=== PATIENT | female | born 1935 | race Caucasian/White ===

== ENCOUNTER 2021-12-30 14:33 | Inpatient (IN) | payer MEDICARE ==
[2021-12-30] MEDS ORDERED: HYDROmorphone 0.5 MG/0.5 ML SYRINGE IVP STA ×2 (15:07→15:47)
[2021-12-30] MEDS ORDERED: KETOROLAC 15 MG/ML 1 ML VIAL IVP STA (15:07)
--- NOTE | 2021-12-30 15:07 | ED ---
General Adult HPI - General Chief complaint: Fall Stated complaint: fall-difficulty breathing Time Seen by Provider: 12/30/21 14:40 Source: patient, RN notes reviewed, old records reviewed Mode of arrival: ambulatory Limitations: no limitations - History of Present Illness Initial comments: This is a 86-year-old female presents emergency room stating that one week ago she fell and hit the door jam on the right side. Patient states every day it gets a little worse to the point now she is in significant pain. Patient states the pain is in the right upper quadrant and anterior and posterior ribs. Patient denies shortness of breath. Patient states it hurts take a deep breath on. Patient denies any palpitations. Patient denies any fever chills or cough per patient denies abdominal pain patient denies nausea vomiting diarrhea. - Related Data Home Medications Medication Instructions Recorded Confirmed Acetaminophen [Tylenol 8 Hour] 650 mg PO Q8H PRN 12/30/21 12/30/21 Atorvastatin [Lipitor] 20 mg PO DAILY 12/30/21 12/30/21 Gabapentin 300 mg PO HS 12/30/21 12/30/21 HYDROcodone/APAP 5-325MG [[place] 1 tab PO ONCE PRN 12/30/21 12/30/21 5-325] Losartan Potassium 100 mg PO DAILY 12/30/21 12/30/21 Magnesium 200 mg PO DAILY 12/30/21 12/30/21 Meloxicam [Mobic] 15 mg PO DAILY 12/30/21 12/30/21 Omeprazole 20 mg PO DAILY 12/30/21 12/30/21 hydroCHLOROthiazide [Hydrodiuril] 25 mg PO DAILY 12/30/21 12/30/21 traMADol HCL 50 mg PO ONCE PRN 12/30/21 12/30/21 Previous Rx's Medication Instructions Recorded Cyclobenzaprine [Flexeril] 5 mg PO TID #9 tab 12/30/21 Allergies Allergy/AdvReac Type Severity Reaction Status Date / Time No Known Allergies Allergy Verified 12/30/21 16:37 Review of Systems ROS Statement: Those systems with pertinent positive or pertinent negative responses have been documented in the HPI. ROS Other: All systems not noted in ROS Statement are negative. Past Medical History Past Medical History: Hypertension History of Any Multi-Drug Resistant Organisms: None Reported Past Surgical History: No Surgical Hx Reported Past Psychological History: No Psychological Hx Reported Smoking Status: Never smoker Past Alcohol Use History: None Reported Past Drug Use History: None Reported General Exam - General Exam Comments Initial Comments: GENERAL: Patient is well-developed and well-nourished. Patient is nontoxic and well- hydrated and is in mild distress. ENT: Neck is soft and supple. No significant lymphadenopathy is noted. Oropharynx is clear. Moist mucous membranes. Neck has full range of motion without eliciting any pain. EYES: The sclera were anicteric and conjunctiva were pink and moist. Extraocular movements were intact and pupils were equal round and reactive to light. Eyelids were unremarkable. PULMONARY: Unlabored respirations. Good breath sounds bilaterally. No audible rales rhonchi or wheezing was noted. CARDIOVASCULAR: There is a regular rate and rhythm without any murmurs gallops or rubs. Patient has some anterior right rib pain as well as some posterior right rib pain ABDOMEN: Right upper quadrant tenderness SKIN: Skin is clear with no lesions or rashes and otherwise unremarkable. NEUROLOGIC: Patient is alert and oriented x3. Cranial nerves II through XII are grossly intact. Motor and sensory are also intact. Normal speech, volume and content. Symmetrical smile. MUSCULOSKELETAL: Normal extremities with adequate strength and full range of motion. LYMPHATICS: No significant lymphadenopathy is noted PSYCHIATRIC: Normal psychiatric evaluation. Limitations: no limitations Course Vital Signs 12/30/21 12/30/21 12/30/21 14:37 17:30 18:07 Temperature 98.2 F Pulse Rate 107 H 89 95 Respiratory 22 18 18 Rate Blood Pressure 194/97 181/82 156/82 O2 Sat by Pulse 96 93 L 96 Oximetry Medical Decision Making - Medical Decision Making Patient still complains of right-sided back and lateral chest pain. Patient states it seems to come and go with position. Patient's CT of the abdomen pelvis show no acute normalities showed 2 old thoracic compression fractures. Patient seemed to be still and reasonable mono pain so I recommended a 23 observation patient actually refused and stated tomorrow significant she has to be home. Her aware of this they were in the room I discussed this with her. EKG shows sinus tachycardia at 102 bpm GA interval 170 QRS is 94 QT interval 349 QTC is 408. Patient's EKG shows no ST segment elevation or depression. After the patient was here another hour prior to being discharged the pain came back and she was unable to go home so I spoke with Dr. Snider agreed to be on consult I spoke with Dr. Rojo he agreed to admit the patient I wrote admit orders consult Dr. Arce - Lab Data Result diagrams: 12/30/21 Unknown 12/30/21 Unknown Disposition Clinical Impression: Fall, Chest wall pain, Thoracic back pain, Hyponatremia Disposition: ADMITTED IP TO THIS [facility] Time of Disposition: 17:12
[2021-12-30 15:27] LABS: Albumin 4.6 g/dL (3.5-5.0); Calcium 9.3 mg/dL (8.4-10.2); Total Bilirubin 1.1 mg/dL (0.2-1.3); Total Protein 7.9 g/dL (6.3-8.2)
[2021-12-30 15:31] LABS: Potassium 4.7 mmol/L (3.5-5.1)
[2021-12-30 15:37] LABS: Basophils # (A) 0.1 k/uL (0-0.2); Basophils % (A) 1 %; Eosinophils # (A) 0.1 k/uL (0-0.7); Eosinophils % (A) 2 %; HCT 41.1 % (34.0-46.0); Lymphocytes # (A) 1.1 k/uL (1.0-4.8); Lymphocytes % (A) 19 %; MCH 30.1 pg (25.0-35.0); MCHC 34.1 g/dL (31.0-37.0); MCV 88.1 fL (80.0-100.0); Mean Platelet Volume 6.7; Monocytes # (A) 0.4 k/uL (0-1.0); Monocytes % (A) 8 %; Neutrophils # (A) 3.7 k/uL (1.3-7.7); Neutrophils % (A) 68 %; Platelet Count 358 k/uL (150-450); RBC 4.66 m/uL (3.80-5.40); RDW 12.3 % (11.5-15.5); WBC 5.5 k/uL (3.8-10.6)
[2021-12-30] MEDS ORDERED: SODIUM CHLORIDE 0.9% 500 ML 500 ML IV ONE (16:16)
--- NOTE | 2021-12-30 16:44 | CT ---
EXAMINATION TYPE: CT ChestAbdPelvis w con DATE OF EXAM: 12/30/2021 COMPARISON: None HISTORY: right side rib pain, recent fall CT DLP: 1391.6 mGycm Automated exposure control for dose reduction was used. CONTRAST: Performed with IV Contrast, patient injected with 80 mL of Isovue 300. Images obtained from the thoracic inlet to the floor of the pelvis with IV contrast. There is some mild subsegmental atelectasis at the right lung base. There is elevated right diaphragm . Heart size is normal. No pericardial effusion. There is hiatal hernia. There is no mediastinal adenopathy. Thoracic aorta shows mild atheromatous changes. There are no hiral r masses. There is no thoracic aortic aneurysm or dissection. Liver and spleen are intact. The bile ducts are not dilated. Gallbladder is intact. There is no pancr eatic mass. Stomach is intact. There is no adrenal mass. Kidneys show satisfactory contrast opacification. There is no hydronephrosi s. Delayed images show normal renal excretion. There is no retroperitoneal adenopathy. Abdominal aort a is atheromatous. There is broad-based umbilical hernia that contains fat. There is T12 compression fracture with 75% loss of height and anterior wedging. Fractures probably ol d. There is T7 wedging 35%. This appears old. The bony pelvis is intact. The hip joints are intact. T he shoulder joints appear intact. No rib fracture seen. There is no mesenteric edema. No ascites or free air. No bowel obstruction. IMPRESSION: Thoracic compression fractures are probably old. Atherosclerotic vascular disease. No definite eviden ce for acute traumatic injury in the abdomen pelvis. There is some atelectasis at the right lung base with elevated right diaphragm that could relate to diaphragm paralysis.
[2021-12-30] MEDS ORDERED: ONDANSETRON 4 MG/2 ML VIAL IVP STA (16:50)
[2021-12-30] MEDS ORDERED: ONDANSETRON 4 MG ODT STARTER PACK 2 TAB BTL PO STA (17:13)
[2021-12-30] MEDS ORDERED: hydrALAZINE HCL 20 MG/ML 1 ML VIAL IVP STA (17:41)
[2021-12-30] MEDS ORDERED: CYCLOBENZAPRINE 10MG STARTER 3 TAB BTL PO STA (18:14)
[2021-12-30] MEDS ORDERED: DIAZEPAM 5 MG/ML 2 ML INJ IVP STA (18:36)
[2021-12-30] MEDS ORDERED: SODIUM CHLORIDE 0.9% 1,000 ML IV ONE (19:12)
[2021-12-30] MEDS ORDERED: HYDROmorphone 0.5 MG/0.5 ML SYRINGE IVP PRN (19:14)
[2021-12-30] MEDS ORDERED: HYDROcodone/APAP 5-325MG 1 EACH TAB PO PRN (20:40)
[2021-12-30] MEDS ORDERED: ACETAMINOPHEN TAB 325 MG TAB PO PRN (20:40)
[2021-12-30] MEDS ORDERED: GABAPENTIN 300 MG CAP PO SCH (21:00)
[2021-12-30] MEDS: HEPARIN SODIUM,PORCINE/PF 5,000 UNIT/0.5 ML SYRINGE SQ SCH (21:02)
[2021-12-30] MEDS ORDERED: ONDANSETRON 4 MG/2 ML VIAL IVP PRN (21:56)
[2021-12-30] MEDS: HYDROmorphone 1 MG/ML 1 ML SYRINGE IVP PRN (22:42)
[2021-12-31] MEDS: HYDROmorphone 1 MG/ML 1 ML SYRINGE IVP PRN (03:45)
[2021-12-31] MEDS: hydrALAZINE HCL 25 MG TAB PO PRN ×2 (04:29→23:31)
[2021-12-31] MEDS: ATORVASTATIN 20 MG TAB PO SCH (08:22)
[2021-12-31] MEDS: LOSARTAN 50 MG TAB PO SCH (08:22)
[2021-12-31] MEDS: FAMOTIDINE 20 MG TAB PO SCH (08:22)
[2021-12-31] MEDS: HEPARIN SODIUM,PORCINE/PF 5,000 UNIT/0.5 ML SYRINGE SQ SCH ×2 (08:22→20:42)
[2021-12-31] MEDS: MELOXICAM 7.5 MG TAB PO SCH (08:23)
[2021-12-31] MEDS: MAGNESIUM OXIDE 400 MG TAB PO SCH (08:23)
[2021-12-31] MEDS: PANTOPRAZOLE 40 MG TABLET PO SCH (08:24)
--- NOTE | 2021-12-31 08:57 | P.CNOR ---
History of Present Illness - [facility] Consult date: 12/31/21 Requesting physician: Krishan Rojo Consult reason: other (Back Pain post trauma) History of present illness: Patient is an 86 y/o forward female presents to the emergency department at [facility] yesterday status post fall at home on last 12/26/2021. Patient says she was in her basement when she fell and hit the door jam. Patient says she did land on her right side and she began to have some right- sided rib pain. Patient says this morning at bedside that the pain is under much better control than it was yesterday. Patient says the pain is 4/10 currently. Patient says the pain comes from the right front portion of her chest and radiates to her back on the right side in the thoracic region. Patient says the pain is exacerbated when she takes a deep breath. Patient says pain alleviated when she doesn't move positions. Patient denies any previous orthopedic surgical history. Patient says she has had several steroid injections into her lower back in the past. Patient thinks there is about 5 different times and she has had injections in the past. Patient denies shortness breath, chest pain, nausea, vomiting, change in vision, some all/bladder control Past Medical History Past Medical History: Hypertension History of Any Multi-Drug Resistant Organisms: None Reported Past Surgical History: Hysterectomy Past Anesthesia/Blood Transfusion Reactions: No Reported Reaction Past Psychological History: No Psychological Hx Reported Smoking Status: Never smoker Past Alcohol Use History: None Reported Past Drug Use History: None Reported Medications and Allergies Home Medications Medication Instructions Recorded Confirmed Type Acetaminophen [Tylenol 8 Hour] 650 mg PO Q8H PRN 12/30/21 12/30/21 History Atorvastatin [Lipitor] 20 mg PO DAILY 12/30/21 12/30/21 History Cyclobenzaprine [Flexeril] 5 mg PO TID #9 tab 12/30/21 Rx Gabapentin 300 mg PO HS 12/30/21 12/30/21 History HYDROcodone/APAP 5-325MG [[place] 1 tab PO ONCE PRN 12/30/21 12/30/21 History 5-325] Losartan Potassium 100 mg PO DAILY 12/30/21 12/30/21 History Magnesium 200 mg PO DAILY 12/30/21 12/30/21 History Meloxicam [Mobic] 15 mg PO DAILY 12/30/21 12/30/21 History Omeprazole 20 mg PO DAILY 12/30/21 12/30/21 History hydroCHLOROthiazide [Hydrodiuril] 25 mg PO DAILY 12/30/21 12/30/21 History traMADol HCL 50 mg PO ONCE PRN 12/30/21 12/30/21 History Allergies Allergy/AdvReac Type Severity Reaction Status Date / Time No Known Allergies Allergy Verified 12/30/21 16:37 Physical Examination Upon inspection there is no evidence of open fractures, erythema, nodules. Mild tenderness to palpation along the mid thoracic spine in the right paravertebral region along the thoracic spine. There is some mild tenderness patient along the ribs on the right side. Sensations equal, symmetric, bilaterally intact in the upper and lower extremity is. Patient has good range of motion in bilateral lower and upper extremities. 5/5 in all major motor groups in the bilateral upper and lower extremities. Patient does have good range of motion in the neck without pain during flexion/extension. Negative Homans bilaterally. Neurovascular status intact bilaterally in the upper extremities. Radial pulses 2+ bilaterally Refill is under 3 seconds in digits of upper extremities Results - Labs Labs: Abnormal Lab Results - Last 24 Hours (Table) 12/30/21 Range/Units Unknown Sodium 128 L (137-145) mmol/L Chloride 94 L (98-107) mmol/L BUN 19 H (7-17) mg/dL Glucose 136 H (74-99) mg/dL AST 38 H (14-36) U/L H & H 12/30/21 Range/Units Unknown Hgb 14.0 (11.4-16.0) gm/dL Hct 41.1 (34.0-46.0) % Result Diagrams: 12/30/21 Unknown 12/30/21 Unknown Assessment and Plan Assessment: 1. Right-sided rib pain; T7, T12 compression fractures, chronic Plan: 1. Right-sided rib pain; T7, T12 compression fractures, chronic - I did discuss the findings of the CT of abdomen and pelvis with the patient at bedside. There appears to be a couple different compression fractures that appear to be chronic in nature. No evidence of rib fractures at this time. Patient was stable at bedside with pain under good control. From an orthopedic standpoint patient does not need any emergent/urgent orthopedic surgery. Appreciate consult. We will continue to follow patient while in hospital. 2. Appreciate medical management 3. Pain management - Tylenol; [place]; gabapentin 4. DVT prophylaxis - heparin 5. GI prophylaxis - Pepcid; Mag-Ox 6. PT/OT - weightbearing as tolerated with walker as needed Time with Patient: Less than 30
[2021-12-31] MEDS ORDERED: hydroCHLOROthiazide 25 MG TAB PO SCH (09:00)
--- NOTE | 2021-12-31 09:39 | P.GSCN ---
History of Present Illness Consult date: 12/31/21 Reason for Consult: Status post fall History of present illness: Patient came to the emergency department yesterday complaining of right-sided chest pain and back pain. Now states its been mostly in the mid to upper back. Patient apparently had too much discomfort to go home from the emergency department yesterday. Apparently the fall was 12 days ago. She said she fell into a door jam. Patient is oriented been seen by orthopedic surgery. Patient has evidence of old or spinal compression fractures but nothing appears acute at this time. She underwent chest abdomen and pelvis CAT scan showing no definite explanation for her symptoms. She says she feels much better today than she did yesterday. Denies abdominal pain. No shortness of breath. Review of Systems The patient denies any acute changes in vision or hearing, no dysphagia or odynophagia, no shortness of breath, no dysuria or hematuria, no headache, no runny nose, no rectal bleeding or melena, no unexplained weight loss Past Medical History Past Medical History: Hypertension History of Any Multi-Drug Resistant Organisms: None Reported Past Surgical History: Hysterectomy Past Anesthesia/Blood Transfusion Reactions: No Reported Reaction Past Psychological History: No Psychological Hx Reported Smoking Status: Never smoker Past Alcohol Use History: None Reported Past Drug Use History: None Reported Medications and Allergies Home Medications Medication Instructions Recorded Confirmed Type Acetaminophen [Tylenol 8 Hour] 650 mg PO Q8H PRN 12/30/21 12/30/21 History Atorvastatin [Lipitor] 20 mg PO DAILY 12/30/21 12/30/21 History Cyclobenzaprine [Flexeril] 5 mg PO TID #9 tab 12/30/21 Rx Gabapentin 300 mg PO HS 12/30/21 12/30/21 History HYDROcodone/APAP 5-325MG [[place] 1 tab PO ONCE PRN 12/30/21 12/30/21 History 5-325] Losartan Potassium 100 mg PO DAILY 12/30/21 12/30/21 History Magnesium 200 mg PO DAILY 12/30/21 12/30/21 History Meloxicam [Mobic] 15 mg PO DAILY 12/30/21 12/30/21 History Omeprazole 20 mg PO DAILY 12/30/21 12/30/21 History hydroCHLOROthiazide [Hydrodiuril] 25 mg PO DAILY 12/30/21 12/30/21 History traMADol HCL 50 mg PO ONCE PRN 12/30/21 12/30/21 History Allergies Allergy/AdvReac Type Severity Reaction Status Date / Time No Known Allergies Allergy Verified 12/30/21 16:37 Surgical - Exam Vital Signs Temp Pulse Resp BP Pulse Ox 98.2 F 107 H 22 194/97 96 12/30/21 14:37 12/30/21 14:37 12/30/21 14:37 12/30/21 14:37 12/30/21 14:37 Physical exam: General: Well-developed, well-nourished HEENT: Normocephalic, sclerae nonicteric Chest: Nontender, equal breath sounds Abdomen: Nontender, nondistended Extremities: No edema, mild lower thoracic vertebral tenderness, no crepitus Neuro: Alert and oriented Results - Labs 12/30/21 Unknown 12/30/21 Unknown Abnormal Lab Results - Last 24 Hours (Table) 12/30/21 Range/Units Unknown Sodium 128 L (137-145) mmol/L Chloride 94 L (98-107) mmol/L BUN 19 H (7-17) mg/dL Glucose 136 H (74-99) mg/dL AST 38 H (14-36) U/L Diabetes panel 12/30/21 Range/Units Unknown Sodium 128 L (137-145) mmol/L Potassium 4.7 (3.5-5.1) mmol/L Chloride 94 L (98-107) mmol/L Carbon Dioxide 23 (22-30) mmol/L BUN 19 H (7-17) mg/dL Creatinine 0.85 (0.52-1.04) mg/dL Glucose 136 H (74-99) mg/dL Calcium 9.3 (8.4-10.2) mg/dL AST 38 H (14-36) U/L ALT 16 (4-34) U/L Alkaline Phosphatase 71 (38-126) U/L Total Protein 7.9 (6.3-8.2) g/dL Albumin 4.6 (3.5-5.0) g/dL Calcium panel 12/30/21 Range/Units Unknown Calcium 9.3 (8.4-10.2) mg/dL Albumin 4.6 (3.5-5.0) g/dL Pituitary panel 12/30/21 Range/Units Unknown Sodium 128 L (137-145) mmol/L Potassium 4.7 (3.5-5.1) mmol/L Chloride 94 L (98-107) mmol/L Carbon Dioxide 23 (22-30) mmol/L BUN 19 H (7-17) mg/dL Creatinine 0.85 (0.52-1.04) mg/dL Glucose 136 H (74-99) mg/dL Calcium 9.3 (8.4-10.2) mg/dL Adrenal panel 12/30/21 Range/Units Unknown Sodium 128 L (137-145) mmol/L Potassium 4.7 (3.5-5.1) mmol/L Chloride 94 L (98-107) mmol/L Carbon Dioxide 23 (22-30) mmol/L BUN 19 H (7-17) mg/dL Creatinine 0.85 (0.52-1.04) mg/dL Glucose 136 H (74-99) mg/dL Calcium 9.3 (8.4-10.2) mg/dL Total Bilirubin 1.1 (0.2-1.3) mg/dL AST 38 H (14-36) U/L ALT 16 (4-34) U/L Alkaline Phosphatase 71 (38-126) U/L Total Protein 7.9 (6.3-8.2) g/dL Albumin 4.6 (3.5-5.0) g/dL Assessment and Plan (1) Fall Narrative/Plan: 86-year-old female with pain after recent fall 12 days ago. Appreciate orthopedic evaluation. It appears there are no plans for any further imaging per orthopedics. Increase activity today. Continue analgesics. Current Visit: Yes Status: Acute Code(s): W19.XXXA - UNSPECIFIED FALL, INITIAL ENCOUNTER SNOMED Code(s): 6688788
[2021-12-31] MEDS: DEXAMETHASONE SOD PHOSPHATE 4 MG/ML 1 ML VIAL IVP SCH ×2 (11:20→20:42)
--- NOTE | 2021-12-31 11:33 | P.HPIM ---
History of Present Illness H&P Date: 12/31/21 HISTORY OF PRESENT ILLNESS 86-year-old female one of Dr. Romain Rosenberg's patient with past medical history of hypertension, hyperlipidemia, chronic lower back pain with history of neuropathy and GERD who apparently seen Dr. Jin physiatry in his office for epidural injection every so often has been on gabapentin for chronic lower back pain along with hydrocodone and muscle relaxer. Patient has fallen at home and her kitchen 12 days ago without any syncope doesn't remember it happen exactly which she believes she tripped was able to get up and walk and did well initially then lost few days developed to have intractable pain and discomfort not been able to walk ambulate or lay down down flat not able to use the bathroom not able to tolerate her food or fluid. Patient ended up coming to the emergency department at [facility] where was seen and evaluated surprisingly her exiting CAT scan showed to compression vertebrae in the thoracic spine with no other major finding. Patient was giving some Dilaudid and initially wants to go home but she started throwing up and had coffee-ground emesis as well after been in the ER for few hours not able to con trol her symptoms and with the nausea vomiting and coffee-ground emesis patient was admitted to the hospital REVIEW OF SYSTEMS Constitutional: No fever, no chills, no night sweats. No weight change. No weakness, fatigue or lethargy. No daytime sleepiness. EENT: No headache. No blurred vision or double vision, no loss of vision. No loss of Hearing, no ringing in the ears, no dizziness. No nasal drainage or congestion. No epistaxis. No sore throat. Lungs: No shortness of breath, cough, no sputum production. No wheezing. Cardiovascular: No chest pain, no lower extremity edema. No palpitations. No paroxysmal nocturnal dyspnea. No orthopnea. No lightheadedness or dizziness. No syncopal episodes. Abdominal: Abdominal pain nausea had vomiting 2, have coffee-ground emesis with no further active bleed had no constipation or diarrhea last bowel movement was 2 days ago. Genitourinary: No dysuria, increased frequency, urgency. No urinary retention. Musculoskeletal: No myalgias. Severe muscle pain in the thoracic and lumbar spine area. Integumentary: No wounds, no lesions. No rash or pruritus. No unusual bruising. No change in hair or nails. Neurologic: No aphasia. No facial droop. No change in mentation. No head injury. No headache. No paralysis. No paresthesia. Psychiatric: No depression. No anxiety. No mood swings. Endocrine: No abnormal blood sugars. No weight change. No excessive sweating or thirst. No cold intolerance. SOCIAL HISTORY He quit smoking 50 years ago used to smoke half-pack a day for 20 years, no alcohol abuse, she is and lives with her . FAMILY HISTORY She has 4 children are all living and well. Patient had 7 siblings 3 of them past 2 from CAD and recurrent from pancreatic cancer, her mother dying at 79 from CHF father age 96 from old age. PHYSICAL EXAMINATION Gen: This is an elderly mildly overweight no acute respiratory distress. HEENT: Head is atraumatic, normocephalic. Pupils equal, round. Sclerae is anicteric. NECK: Supple. No JVD. No lymphadenopathy. No thyromegaly. LUNGS: Clear to auscultation. No wheezes or rhonchi. No intercostal retractions. HEART: Regular rate and rhythm. No murmur. ABDOMEN: Soft with mild discomfort in the epigastric area positive bowel sounds rebound or rigidity. EXTREMITIES: No pedal edema. No calf tenderness. NEUROLOGICAL: Patient is awake, alert and oriented x3. Cranial nerves 2 through 12 are grossly intact. Back: Slight discomfort and irritation in the mid thoracic spine and upper lumbar spine area no rash slight tenderness over the spinal area. ASSESSMENT AND PLAN 1. Intractable back pain post fall: With to compression vertebrae found on a CAT scan, patient will be seen orthopedic continue Decadron along with pain andree zuluaga for now decide with her orthopedic able to do any kyphoplasty or if pain still not under control patient might need to see anesthesia for epidural injection. The meanwhile continue hydromorphone overnight switch patient to hydrocodone by tomorrow we'll continue muscle relaxer and steroids. 2 coffee-ground emesis: With no active GI bleed at this point CBC will be repeated again continue PPI. 3 chronic lower back pain: Has been on hydrocodone code on along with gabapentin. 4 hypertension: Continue patient on losartan 100 mg a day along with Dyazide. 5 hyperlipidemia: Continue atorvastatin 20 mg a day. 6 Severe GERD: Has been on omeprazole 20 mg a day. 7 chronic neuropathy: Has been on gabapentin 300 mg daily at bedtime Will increase the dose to twice a day at this point. 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 9 hyperglycemia: Most likely borderline diabetes hemoglobin A1c be requested a Chin will be on diet control continue Accu-Chek sliding scales coverage. 10 GI prophylaxis: Continue PI. 11 DVT prophylaxis: We'll continue subcu heparin if patient does not have any GI bleed. CODE STATUS: Full code. Patient will be admitted to the hospital for a minimum of 2 night stay. Past Medical History Past Medical History: Hypertension History of Any Multi-Drug Resistant Organisms: None Reported Past Surgical History: Hysterectomy Past Anesthesia/Blood Transfusion Reactions: No Reported Reaction Past Psychological History: No Psychological Hx Reported Smoking Status: Never smoker Past Alcohol Use History: None Reported Past Drug Use History: None Reported Medications and Allergies Home Medications Medication Instructions Recorded Confirmed Type Acetaminophen [Tylenol 8 Hour] 650 mg PO Q8H PRN 12/30/21 12/30/21 History Atorvastatin [Lipitor] 20 mg PO DAILY 12/30/21 12/30/21 History Cyclobenzaprine [Flexeril] 5 mg PO TID #9 tab 12/30/21 Rx Gabapentin 300 mg PO HS 12/30/21 12/30/21 History HYDROcodone/APAP 5-325MG [[place] 1 tab PO ONCE PRN 12/30/21 12/30/21 History 5-325] Losartan Potassium 100 mg PO DAILY 12/30/21 12/30/21 History Magnesium 200 mg PO DAILY 12/30/21 12/30/21 History Meloxicam [Mobic] 15 mg PO DAILY 12/30/21 12/30/21 History Omeprazole 20 mg PO DAILY 12/30/21 12/30/21 History hydroCHLOROthiazide [Hydrodiuril] 25 mg PO DAILY 12/30/21 12/30/21 History traMADol HCL 50 mg PO ONCE PRN 12/30/21 12/30/21 History Allergies Allergy/AdvReac Type Severity Reaction Status Date / Time No Known Allergies Allergy Verified 12/30/21 16:37 Physical Exam Vitals: Vital Signs Temp Pulse Pulse Pulse Resp BP BP 12/31/21 08:00 90 156/99 12/31/21 06:02 99 149/82 12/31/21 04:20 100 163/89 12/31/21 02:00 97.8 F 102 H 18 169/77 12/30/21 22:00 101 H 149/92 12/30/21 21:00 103 H 18 12/30/21 20:26 89 18 147/84 12/30/21 20:00 98.1 F 103 H 18 182/97 12/30/21 18:07 95 18 156/82 12/30/21 17:30 89 18 181/82 12/30/21 14:37 98.2 F 107 H 22 194/97 Pulse Ox 12/31/21 08:00 12/31/21 06:02 12/31/21 04:20 12/31/21 02:00 92 L 12/30/21 22:00 12/30/21 21:00 12/30/21 20:26 95 12/30/21 20:00 95 12/30/21 18:07 96 12/30/21 17:30 93 L 12/30/21 14:37 96 Intake and Output 12/30/21 12/31/21 12/31/21 22:59 06:59 14:59 Intake Total 675 Balance 675 Intake: Intake, IV Titration 675 Amount Sodium Chloride 0.9% 1, 675 000 ml @ 75 mls/hr IV . [id number] ONE Rx#:[id number] Other: Voiding Method Toilet Weight 73.936 kg Results CBC & Chem 7: 12/30/21 Unknown 12/30/21 Unknown Labs: Abnormal Lab Results - Last 24 Hours (Table) 12/30/21 Range/Units Unknown Sodium 128 L (137-145) mmol/L Chloride 94 L (98-107) mmol/L BUN 19 H (7-17) mg/dL Glucose 136 H (74-99) mg/dL AST 38 H (14-36) U/L Thrombosis Risk Factor Assmnt - Choose All That Apply Any of the Below Risk Factors Present?: Yes Each Factor Represents 1 point: Obesity (BMI >25) Other Risk Factors: Yes Each Risk Factor Represents 3 Points: Age 75 years or older Thrombosis Risk Factor Assessment Total Risk Factor Score: 4 Thrombosis Risk Factor Assessment Level: Moderate Risk
[2021-12-31 11:52] LABS: HCT 40.5 % (34.0-46.0); MCH 29.3 pg (25.0-35.0); MCV 91.8 fL (80.0-100.0); Mean Platelet Volume 6.6; Platelet Count 336 k/uL (150-450); RBC 4.42 m/uL (3.80-5.40); RDW 11.9 % (11.5-15.5); WBC 8.6 k/uL (3.8-10.6)
[2021-12-31] MEDS: HYDROcodone/APAP 10-325MG 1 EACH TAB PO PRN ×2 (11:56→20:41)
[2021-12-31 12:07] LABS: ALT 15 U/L (4-34); AST 32 U/L (14-36); African American GFR (CKD) 70 (>60 ml/min/1.73 sqM); Albumin 4.2 g/dL (3.5-5.0); Albumin/Globulin Ratio 1.6; Alkaline Phosphatase 83 U/L (38-126); Anion Gap 7 mmol/L; Blood Urea Nitrogen 22 mg/dL (7-17); Calcium 9.1 mg/dL (8.4-10.2); Carbon Dioxide 27 mmol/L (22-30); Chloride 96 mmol/L (98-107); Globulin 2.6 g/dL; Glucose 107 mg/dL (74-99); Non-African American GFR(CKD) 61 (>60 ml/min/1.73 sqM); Potassium 4.3 mmol/L (3.5-5.1); Sodium 130 mmol/L (137-145); Total Bilirubin 1.1 mg/dL (0.2-1.3); Total Protein 6.8 g/dL (6.3-8.2)
[2021-12-31 15:43] LABS: Appearance,Urine Cloudy (Clear); Bacteria,Urine Few /hpf; Bilirubin,Urine Negative (Negative); Blood,Urine Trace (Negative); Color,Urine Yellow; Glucose,Urine (UA) Negative (Negative); Ketones,Urine Negative (Negative); Leukocyte Esterase,Urine Large (Negative); Mucus,Urine Few /hpf; Nitrite,Urine Negative (Negative); PH, Urine 5.5 (5.0-8.0); Protein,Urine 1+ (Negative); RBC,Urine 6 /hpf (0-5); Specific Gravity,Urine 1.029 (1.001-1.035); Squamous Epithelial Cell,Urine 4 /hpf (0-4); Urobilinogen,Urine <2.0 mg/dL (<2.0); WBC,Urine >182 /hpf (0-5)
[2021-12-31] MEDS: GABAPENTIN 300 MG CAP PO SCH (20:42)
[2022-01-01] MEDS: hydrALAZINE HCL 25 MG TAB PO PRN (05:00)
[2022-01-01] MEDS: MAGNESIUM OXIDE 400 MG TAB PO SCH (08:42)
[2022-01-01] MEDS: PANTOPRAZOLE 40 MG TABLET PO SCH (08:42)
[2022-01-01] MEDS: MELOXICAM 7.5 MG TAB PO SCH (08:43)
[2022-01-01] MEDS: GABAPENTIN 300 MG CAP PO SCH (08:44)
[2022-01-01] MEDS: LOSARTAN 50 MG TAB PO SCH (08:44)
[2022-01-01] MEDS: DEXAMETHASONE SOD PHOSPHATE 4 MG/ML 1 ML VIAL IVP SCH (08:45)
[2022-01-01] MEDS: ATORVASTATIN 20 MG TAB PO SCH (08:45)
[2022-01-01] MEDS: HEPARIN SODIUM,PORCINE/PF 5,000 UNIT/0.5 ML SYRINGE SQ SCH (08:45)
[2022-01-01] MEDS: FAMOTIDINE 20 MG TAB PO SCH (08:45)
[2022-01-01] MEDS: HYDROcodone/APAP 10-325MG 1 EACH TAB PO PRN ×2 (08:53→13:40)
[2022-01-01 10:01] LABS: HCT 37.2 % (37.2-46.3); HGB 12.2 g/dL (12.0-15.0); MCH 28.9 pg (27.0-32.0); MCHC 32.8 g/dL (32.0-37.0); MCV 88.2 fL (80.0-97.0); Mean Platelet Volume 8.8 fL (9.5-12.2); NRBC Per 100 WBC 0 /100 WBCS (0.0-0.0); Platelet Count 334 X 10*3/uL (140-440); RBC 4.22 X 10*6/uL (4.10-5.20); WBC 6.45 X 10*3/uL (4.50-10.00)
[2022-01-01] MEDS ORDERED: CEPHALEXIN 500 MG CAP PO SCH (10:15)
[2022-01-01 10:23] LABS: African American GFR (CKD) 68.1 (60.0-200.0); Albumin 4.3 g/dL (3.8-4.9); Albumin/Globulin Ratio 1.95 (1.60-3.17); Anion Gap 12.5 mmol/L (10.00-18.00); BUN/Creat Ratio 25.56 Ratio (12.00-20.00); Calcium 9.5 mg/dL (8.7-10.3); Carbon Dioxide 21.5 mmol/L (20.0-27.5); Globulin 2.2 g/dL (1.6-3.3); Non-African American GFR(CKD) 58.7 (60.0-200.0); Potassium 4.9 mmol/L (3.5-5.5); Total Bilirubin 0.4 mg/dL (0.30-1.20); Total Protein 6.5 g/dL (6.2-8.2)
--- NOTE | 2022-01-01 10:43 | P.PN ---
Subjective Progress Note Date: 01/01/22 Principal diagnosis: Back pain s/p fall Patient seen and examined today. Patient is sitting at bedside eating her breakfast. She states that her pain is controlled at this time. Ms. Joseph states that she has been ambulatory to the restroom and sitting in the chair throughout the day. Informed patient that we would be ordering her a TLSO brace. She verbalized understanding. Prescription was left on chart. Patient denies any numbness or tingling to lower extremities. She denies any loss of bowel or bladder. Patient is anticipating discharge today. Objective - Vital Signs Vital signs: Vital Signs Temp 98.4 F 01/01/22 04:53 Pulse 92 01/01/22 04:53 Resp 20 01/01/22 04:53 BP 164/78 01/01/22 04:53 Pulse Ox 96 01/01/22 04:53 Intake & Output 12/31/21 01/01/22 01/01/22 18:59 06:59 18:59 Intake Total 240 425 Output Total 2 Balance 240 423 Intake: Oral 240 425 Output: Urine 2 Other: Voiding Method Toilet Toilet Toilet # Voids 4 2 - Exam Physical Examination General: The patient is awake and alert, in no acute distress Skin: Skin is warm and dry with no obvious rashes or lesions. Hairy patches absent, no dorsal skin dimples, no cafe au lait spots, and no surgical incisions. Eye: Pupils are equal, round and reactive to light, extra-ocular movements are intact; there is normal conjunctiva bilaterally. Neck: The neck is supple, there is no tenderness and ROM intact. Cardiovascular: There is an regular rate and rhythm. No murmur, rub or gallop is appreciated. Respiratory: Lungs are clear to auscultation, respirations are non-labored, breath sounds are equal. Gastrointestinal: Soft, non-distended, non-tender abdomen . Back: There is no tenderness to palpation in the midline, paralumbar, parathoracic or buttocks region. There is no obvious deformity . Musculoskeletal: ROM limited secondary to pain and stiffness from surgical procedure. Shoulder abduction 5/5, elbow flexors 5/5, wrist dorsiflexors 5/5. finger abductor 5/5, insole rasper 5/5, hip flexor 4/5, knee flexor 4/5, ankle dorsiflexor 4/5, ankle plantarflexion 4/5 and extensor hallucis 4/5. Neurological: CN 2-12 intact. There are no obvious motor or sensory deficits. Movement and coordination equal and intact. Sensory exam to light touch intact C5-T1 and intact from L2-S1. Reflexes 2/4 in bilateral upper and lower extremities. Negative Hoffmans, babinski, and clonus signs. Psychiatric: Cooperative, appropriate mood & affect, normal judgment. - Labs CBC & Chem 7: 01/01/22 05:18 01/01/22 05:18 Labs: Abnormal Lab Results - Last 24 Hours (Table) 12/31/21 12/31/21 01/01/22 Range/Units 11:37 15:18 05:18 MPV 8.8 L (9.5-12.2) fL Sodium 130 L (137-145) mmol/L Chloride 96 L (98-107) mmol/L BUN 22 H (7-17) mg/dL Glucose 107 H (74-99) mg/dL Urine Appearance Cloudy H (Clear) Urine Protein 1+ H (Negative) Urine Blood Trace H (Negative) Ur Leukocyte Esterase Large H (Negative) Urine RBC 6 H (0-5) /hpf Urine WBC >182 H (0-5) /hpf Urine Bacteria Few H (None) /hpf Urine Mucus Few H (None) /hpf Microbiology - Last 24 Hours (Table) 12/31/21 15:18 Urine Culture - Preliminary Urine,Voided Assessment and Plan Plan: Plan: -Appreciate weight loss consultant and team management. -Activity: Ambulate QID, OOB all meals, up and about. Use walker or cane if needed for stability. -Daily PT/OT, increase ambulation strength and balance. -Brace when up and about, not needed in bed or chair -Pain control: Adequate at this time -Meds: reviewed -DVT PPX: per medicine -Encourage IS 10x/hr -Dispo: Anticipate discharge home today with homecare *I reviewed and discussed this case with my attending Dr. Rodriguez, whom has reviewed this chart and films and is in agreement with assessment and plan of care as outlined above. I have personally seen and examined the patient, performed the documentation and the assessment and plan as written. Number of minutes spent on the visit: 20m. Time with Patient: Less than 30
--- NOTE | 2022-01-01 10:44 | P.PN ---
Subjective Progress Note Date: 01/01/22 CHIEF COMPLAINT: Status post fall 12 days ago HISTORY OF PRESENT ILLNESS: Patient has no new complaints. She is sitting at edge of the bed. She reports that her pain is controlled. Denies any nausea vomiting. She was able to eat small amount for breakfast. She reports having flatus. She denies any abdominal pain. Denies any nausea or vomiting. Patient is followed by orthopedics. Afebrile. WBC 6.45 hemoglobin 12.2 platelets 334 sodium 131 potassium 4.9 creatinine 0.9 PHYSICAL EXAM: VITAL SIGNS: Reviewed. GENERAL: Well-developed in no acute distress. HEENT: No sclera icterus. Extraocular movements grossly intact. Moist buccal mucosa. Head is atraumatic, normocephalic. ABDOMEN: Soft. Nondistended. Nontender. NEUROLOGIC: Alert and oriented. Cranial nerves II through XII grossly intact. ASSESSMENT: 1. Fall 12 days ago 2. Chronic compression fractures T7 and T12 3. Right-sided rib pain. No fractures noted. PLAN: -Continue supportive care -Continue pain management -Encourage patient to ambulate as tolerated -Continue to work with PT/OT Physician Hospice Nurse Practitioner note has been reviewed by physician. Signing provider agrees with the documented findings, assessment, and plan of care. I have personally seen and examined the patient, reviewed the PROSTHETIC MAKEUP DESIGNER /PAs history, exam and MDM and agree with the assessment and plan as written. Based on total visit time, I have performed more than 50% of the visit. As above: Pain seemed to be improved. Apparently they are discharging patient today. Follow-up with orthopedics. Objective - Vital Signs Vital signs: Vital Signs Temp 98.4 F 01/01/22 04:53 Pulse 92 01/01/22 04:53 Resp 20 01/01/22 04:53 BP 164/78 01/01/22 04:53 Pulse Ox 96 01/01/22 04:53 Intake & Output 12/31/21 01/01/22 01/01/22 18:59 06:59 18:59 Intake Total 240 425 Output Total 2 Balance 240 423 Intake: Oral 240 425 Output: Urine 2 Other: Voiding Method Toilet Toilet Toilet # Voids 4 2 - Labs CBC & Chem 7: 01/01/22 05:18 01/01/22 05:18 Labs: Abnormal Lab Results - Last 24 Hours (Table) 12/31/21 12/31/21 01/01/22 Range/Units 11:37 15:18 05:18 MPV 8.8 L (9.5-12.2) fL Sodium 130 L (137-145) mmol/L Chloride 96 L (98-107) mmol/L BUN 22 H (7-17) mg/dL Est GFR (CKD-EPI)NonAf (60.0-200.0) BUN/Creatinine Ratio (12.00-20.00) Ratio Glucose 107 H (74-99) mg/dL Urine Appearance Cloudy H (Clear) Urine Protein 1+ H (Negative) Urine Blood Trace H (Negative) Ur Leukocyte Esterase Large H (Negative) Urine RBC 6 H (0-5) /hpf Urine WBC >182 H (0-5) /hpf Urine Bacteria Few H (None) /hpf Urine Mucus Few H (None) /hpf 01/01/22 Range/Units 05:18 MPV (9.5-12.2) fL Sodium 131 L (137-145) mmol/L Chloride (98-107) mmol/L BUN (7-17) mg/dL Est GFR (CKD-EPI)NonAf 58.7 L (60.0-200.0) BUN/Creatinine Ratio 25.56 H (12.00-20.00) Ratio Glucose 115 H (74-99) mg/dL Urine Appearance (Clear) Urine Protein (Negative) Urine Blood (Negative) Ur Leukocyte Esterase (Negative) Urine RBC (0-5) /hpf Urine WBC (0-5) /hpf Urine Bacteria (None) /hpf Urine Mucus (None) /hpf Microbiology - Last 24 Hours (Table) 12/31/21 15:18 Urine Culture - Preliminary Urine,Voided
[2022-01-01 11:53] VITALS: BP 165/80; PULSE 97; RESP 16; TEMP 97.4
--- NOTE | 2022-01-01 16:30 | P.DS ---
Providers Date of admission: 12/30/21 19:12 Expected date of discharge: 01/01/22 Attending physician: Krishan Rojo Consults: 12/30/21 19:12 Consult Physician Urgent Consulting Provider: Madan Arce Consult Reason/Comments: Trauma, chest wall pain Do you want consulting provider notified?: Yes 12/30/21 20:41 Consult Physician Routine Consulting Provider: Paulino Rodriguez Consult Reason/Comments: Back Pain post trauma Do you want consulting provider notified?: Yes Primary care physician: Romain Rosenberg [facility] Course: Discharge Diagnosis: Urinary tract infection, patient discharged home on Keflex 500 mg 3 times daily 5 days. Patient to follow up outpatient with PCP, Dr. Rosenberg once antibiotic course is complete for repeat urinalysis to ensure total resolution of infection. Intractable acute back pain on chronic back pain status post fall. CT revealing T7 and T12 compression fractures. Patient with no neurological deficits. Patient discharged home with CAITLIN brace and Medrol Dosepak. Patient instructed to follow up outpatient with orthospine surgery in 1 week. Reports of coffee-ground emesis prior to arriving to facility, no further episodes since arrival to facility. Hemoglobin stable. Patient to continue Protonix 20 mg daily. Hypertension, monitor vital signs and continue daily medication regimen with losartan 100 mg daily. Hyperlipidemia, continue daily medication regimen with atorvastatin 20 mg daily. GERD, continue PPI with omeprazole. Chronic neuropathy, continue daily medication regimen with Neurontin. Hyponatremia, improved Hospital Course: Patient is a very pleasant 86-year-old female with a past medical history of hypertension, hyperlipidemia, GERD, and chronic lower back pain with neuropathy. She presented to the hospital on 12/31/21 with a chief complaint of acute on chronic mid back pain status post fall 12 days prior to arrival. Patient underwent full evaluation. CBC unremarkable. BMP revealed hyponatremia with sodium of 128. Urinalysis was positive for infection. Patient started on Keflex 500 mg 3 times a day and urine culture sent to lab for analysis. Computed tomography scan was completed which revealed T7 and T12 compression fractures. EKG was completed positive for sinus tachycardia at [address] depression in inferiolateral leads I and II, V4, V5 and V6 with no signs of ST elevation showing no signs of acute ischemia. Patient was admitted under internal medicine team and orthopedic surgery and general surgery were consulted. General surgery evaluated recommending no surgical interventions at this time recommending patient work on increasing ambulation as tolerated. Orthospine surgery evaluated also with no plans for surgical intervention. Recommending CAITLIN brace, Medrol Dosepak, pain management and for patient to follow-up outpatient in their office in one week. Patient is medically stable at this time and denies currently having any uncontrolled pain, saddlebag anasthesias, or experiencing any focal numbness/weakness in her extremities. Patient ambulating without any reported difficulties. She underwent evaluation with physical therapy and patient was found to be completely independent and safe for discharge home. Patient medically stable for discharge at this time. Patient being discharged home on Keflex 500 mg 3 times daily for 5 days for treatment of her UTI. Patient instructed she will need to follow up outpatient with PCP Dr. Rosenberg once antibiotic course is complete for a repeat urinalysis to ensure total resolution of infection. Patient reports she has experienced mild urgency and frequency accompanied by a foul-smelling urine but states she has not had a urinary tract infection in greater than 20 years and denies experiencing any dysuria. Orthopedic surgery measured patient in [employer] brace and discharging patient home on Medrol Dosepak and pain medication regimen. Patient to follow up outpatient with her PCP in 1-2 days and with orthospine surgery in 1 week. Patient seen and examined at bedside Vital signs reviewed and stable. General: Nontoxic, no distress and appears stated age. Derm: Skin warm and dry, normal coloration for ethnicity. Head: Atraumatic, normocephalic and symmetric. Eyes: EOMs intact, no lid lag, and anicteric sclera Mouth: no lip lesions, mucus membranes moist Cardiovascular: regular rate and rhythm with normal S1S2, no murmur, positive posterior tibial pulses bilaterally, and cap refill < 2 seconds. Lungs: Respirations even, regular, and unlabored on room air. Lungs CTA bilaterally, no rhonchi, no rales, no wheezing, and no accessory muscle usage. Abdominal: soft, nontender to palpation, no guarding, no appreciable organomegaly Ext: ROM intact. No gross muscle atrophy, no edema, no contractures Neuro: Speech clear, face symmetrical and CN II-XII grossly intact with no noted focal neuro deficits Psych: Alert and oriented to person, place, time, and situation. Appropriate and pleasant affect. A total of 39 minutes of time were spent preparing this complex discharge summary. Pt was discharged on 01/01/2022 at 10:16 AM. Carlos Sánchez NP rendered care for this patient independently, reviewed the findings and plan as documented in the note above. I did not physically speak with or examine the patient on this date. --- Patient with Group D enterococcus Carlos will follow up culture results in AM Patient Condition at Discharge: Stable Plan - Discharge Summary Discharge Rx Participant: Yes New Discharge Prescriptions: New Cyclobenzaprine [Flexeril] 5 mg PO TID #9 tab Gabapentin 300 mg PO BID #60 cap methylPREDNISolone Dose Pack [Medrol Dose Pack] 4 mg PO DIRECTED #1 packet HYDROcodone/APAP 10-325MG [Immaculata 10-325] 1 tab PO Q4-6H PRN #56 tab PRN Reason: Pain Cephalexin [Keflex] 500 mg PO TID 5 Days #15 cap Continue Magnesium 200 mg PO DAILY Acetaminophen [Tylenol 8 Hour] 650 mg PO Q8H PRN PRN Reason: Pain hydroCHLOROthiazide [Hydrodiuril] 25 mg PO DAILY Omeprazole 20 mg PO DAILY Meloxicam [Mobic] 15 mg PO DAILY Losartan Potassium 100 mg PO DAILY Atorvastatin [Lipitor] 20 mg PO DAILY traMADol HCL 50 mg PO ONCE PRN PRN Reason: Pain Discontinued HYDROcodone/APAP 5-325MG [Immaculata 5-325] 1 tab PO ONCE PRN PRN Reason: Pain Gabapentin 300 mg PO HS Discharge Medication List Acetaminophen [Tylenol 8 Hour] 650 mg PO Q8H PRN 12/30/21 [History] Atorvastatin [Lipitor] 20 mg PO DAILY 12/30/21 [History] Cyclobenzaprine [Flexeril] 5 mg PO TID #9 tab 12/30/21 [Rx] Losartan Potassium 100 mg PO DAILY 12/30/21 [History] Magnesium 200 mg PO DAILY 12/30/21 [History] Meloxicam [Mobic] 15 mg PO DAILY 12/30/21 [History] Omeprazole 20 mg PO DAILY 12/30/21 [History] hydroCHLOROthiazide [Hydrodiuril] 25 mg PO DAILY 12/30/21 [History] traMADol HCL 50 mg PO ONCE PRN 12/30/21 [History] Cephalexin [Keflex] 500 mg PO TID 5 Days #15 cap 01/01/22 [Rx] Gabapentin 300 mg PO BID #60 cap 01/01/22 [Rx] HYDROcodone/APAP 10-325MG [Immaculata 10-325] 1 tab PO Q4-6H PRN #56 tab 01/01/22 [Rx] methylPREDNISolone Dose Pack [Medrol Dose Pack] 4 mg PO DIRECTED #1 packet 01/01/22 [Rx] Follow up Appointment(s)/Referral(s): Paulino Rodriguez DO [Doctor of Osteopathic Medicine] - 01/10/22 10:20 am Romain Rosenberg MD [Primary Care Provider] - 1-2 days (Patient needs to make an appointment with Doctor Shakira.) Derek &Seymour [NON-STAFF] - As Needed (TLSO BRACE) Patient Instructions/Handouts: Cephalexin (By mouth), Hydrocodone/Acetaminophen (By mouth), Cyclobenzaprine (By mouth), Gabapentin (By mouth), Methylprednisolone (By mouth), Fall Prevention for Older Adults (DC) Activity/Diet/Wound Care/Special Instructions: Activity: As tolerated. Take breaks as needed. Diet: Heart healthy and carb consistent diet. Avoid salts, or foods with hidden salts such as canned or boxed foods and frozen dinners. Extra salt makes your heart work harder and traps the fluid in your body for longer. Special Instructions: Take all of your medications as directed and remember to keep all of your doctor's appointments and follow-up as needed. Recommend "not" taking Motrin in addition to your Mobic as this can cause upset stomach and result in gastric ulcers. Thank you for allowing us to participate in your care, it was truly a pleasure h aving you for our patient!!! Discharge Disposition: HOME SELF-CARE
== END 2022-01-01 18:11 | disposition home or self-care (01) | DRG 543 ==
LOC: EC 14:33 → 5NMEDONC 19:12
PROVIDERS: ADMIT Internal Medicine Geriatric Medicine; ATTEND Internal Medicine Geriatric Medicine
DX: M48.54XA Collapsed vertebra, not elsewhere classified, thoracic region, initial encounter for fracture (principal); E22.2 Syndrome of inappropriate secretion of antidiuretic hormone; N39.0 Urinary tract infection, site not specified; K92.0 Hematemesis; G89.11 Acute pain due to trauma; R07.81 Pleurodynia; E66.9 Obesity, unspecified; M54.6 Pain in thoracic spine; W18.30XA Fall on same level, unspecified, initial encounter; Y92.008 Other place in unspecified non-institutional (private) residence as the place of occurrence of the external cause; Z68.32 Body mass index [BMI] 32.0-32.9, adult; R00.0 Tachycardia, unspecified; E78.5 Hyperlipidemia, unspecified; G62.9 Polyneuropathy, unspecified; G89.29 Other chronic pain; I10 Essential (primary) hypertension; K21.9 Gastro-esophageal reflux disease without esophagitis; M40.204 Unspecified kyphosis, thoracic region; R73.03 Prediabetes; W22.8XXA Striking against or struck by other objects, initial encounter; Z79.1 Long term (current) use of non-steroidal anti-inflammatories (NSAID); Z79.899 Other long term (current) drug therapy; Z80.0 Family history of malignant neoplasm of digestive organs; Z82.49 Family history of ischemic heart disease and other diseases of the circulatory system; Z87.891 Personal history of nicotine dependence; Z90.710 Acquired absence of both cervix and uterus; Z28.310 Unvaccinated for COVID-19
CPT/HCPCS: 36415; 71260; 74177; 80053; 81001; 84484; 85025; 85027; 87077; 87086; 87186; 93005; 96361; 96374; 96375; 96376; 99285

== ENCOUNTER → 2022-01-17 | Outpatient (CLI) | payer MEDICARE ==
[2022-01-17 18:26] LABS: Basophils # (A) 0.04 X 10*3/uL (0.00-0.10); Basophils % (A) 0.7 %; Eosinophils % (A) 5.1 %; HCT 37.4 % (37.2-46.3); HGB 12.2 g/dL (12.0-15.0); Immature Grans, Automated 0.2 %; Lymphocytes # (A) 1.12 X 10*3/uL (0.90-5.00); MCH 29.3 pg (27.0-32.0); MCHC 32.6 g/dL (32.0-37.0); MCV 89.9 fL (80.0-97.0); Mean Platelet Volume 9.1 fL (9.5-12.2); Monocytes # (A) 0.81 X 10*3/uL (0.20-1.00); Monocytes % (A) 13.7 %; NRBC Per 100 WBC 0 /100 WBCS (0.0-0.0); Neutrophils # (A) 3.63 X 10*3/uL (1.80-7.70); Neutrophils % (A) 61.3 %; Platelet Count 282 X 10*3/uL (140-440); RBC 4.16 X 10*6/uL (4.10-5.20); RDW 12.5 % (11.5-14.5); WBC 5.91 X 10*3/uL (4.50-10.00)
[2022-01-17 19:04] LABS: INR 0.96 (0.90-1.11); Prothrombin Time 10.9 sec (9.9-11.9)
[2022-01-17 20:11] LABS: African American GFR (CKD) 59.9 (60.0-200.0); Anion Gap 10.4 mmol/L (10.00-18.00); BUN/Creat Ratio 13.3 Ratio (12.00-20.00); Blood Urea Nitrogen 13.3 mg/dL (9.0-27.0); Calcium 9.5 mg/dL (8.7-10.3); Carbon Dioxide 26.6 mmol/L (20.0-27.5); Non-African American GFR(CKD) 51.7 (60.0-200.0); Potassium 4.3 mmol/L (3.5-5.5)
== END | disposition home or self-care (01) ==
LOC: LABPAT 12:24
PROVIDERS: ATTEND Orthopaedic Surgery
DX: Z01.812 Encounter for preprocedural laboratory examination (principal); S22.061A Stable burst fracture of T7-T8 vertebra, initial encounter for closed fracture; X58.XXXA Exposure to other specified factors, initial encounter
CPT/HCPCS: 36415; 80048; 85025; 85610; 87070; 93005